=== PATIENT | male | born 1970 | race Caucasian/White ===

== ENCOUNTER → 2021-02-11 | Outpatient (CLI) | payer BC ==
[~2021-02-11] MED LIST: ASPIRIN 325MG325 MG PO; BACTRIM DS TAB1 EACH PO; BACTROBAN CREAM15 GM TOP; CATAPRES 0.1MG0.1 MG PO; CLEOCIN HCL300 MG PO; CLOPIDOGREL75 MG PO; COMBIVENT0.074 GM/I INH; COREG 25MG TAB25 MG PO; ECOTRIN81 MG PO; HYDRALAZINE HCL50 MG PO; HYDROCHLOROTHIA25 MG PO; ISOSORBIDE MON120 MG PO; K-DUR TAB 10 M10 MEQ PO; KEFLEX CAP 500500 MG PO; LEVAQUIN500 MG PO; LIPITOR80 MG PO; NAPROSYN500 MG PO; NITROSTAT0.4 MG SL; NORVASC10 MG PO; OMEPRAZOLE20 MG PO; PROTONIX40 MG PO; TYLENOL W/CODEIN1 E1 PO; VIBRAMYCIN 100100 MG PO; VITAMIN D250000 UNIT PO; ZESTRIL40 MG PO; ZETIA 10 MG TAB10 MG PO; ZOFRAN4 MG PO
[2021-02-11 13:48] LABS: HEMOGLOBIN 13.7 gm/dl (14.0-17.5); RED BLOOD COUNT 4.46 M/UL (4.20-5.50)
== END ==
LOC: LAB 13:21
PROVIDERS: Internal Medicine Cardiovascular Disease
DX: I25.119 Atherosclerotic heart disease of native coronary artery with unspecified angina pectoris (principal); R94.39 Abnormal result of other cardiovascular function study; I11.0 Hypertensive heart disease with heart failure; I50.22 Chronic systolic (congestive) heart failure; Z95.1 Presence of aortocoronary bypass graft
CPT/HCPCS: 36415; 71046; 80048; 80076; 84439; 84443; 84481; 85025

== ENCOUNTER → 2021-02-15 | Outpatient (CLI) | payer BC | LOC: CATH 07:15 | DX: I25.118 Atherosclerotic heart disease of native coronary artery with other forms of angina pectoris (principal); I11.0 Hypertensive heart disease with heart failure; I50.22 Chronic systolic (congestive) heart failure; I25.5 Ischemic cardiomyopathy; J44.9 Chronic obstructive pulmonary disease, unspecified; I25.2 Old myocardial infarction; I47.2 Ventricular tachycardia; E78.5 Hyperlipidemia, unspecified; G47.33 Obstructive sleep apnea (adult) (pediatric); Z95.1 Presence of aortocoronary bypass graft; Z86.16 Personal history of COVID-19; Z99.89 Dependence on other enabling machines and devices; Z87.891 Personal history of nicotine dependence; Z79.82 Long term (current) use of aspirin; Z79.899 Other long term (current) drug therapy; Z79.02 Long term (current) use of antithrombotics/antiplatelets | CPT/HCPCS: 99152; 99153; C1760; C1769; J1644; J2250; J3010; J7030; Q9965; Q9967 ==

== ENCOUNTER → 2021-02-24 | Outpatient (CLI) | payer BC | LOC: HEART 5 09:05 | DX: I50.22 Chronic systolic (congestive) heart failure (principal); I49.01 Ventricular fibrillation; R06.02 Shortness of breath; Z79.899 Other long term (current) drug therapy; I07.1 Rheumatic tricuspid insufficiency; Z95.0 Presence of cardiac pacemaker; R94.2 Abnormal results of pulmonary function studies | CPT/HCPCS: 93306; 94060; 94729 ==